=== PATIENT | male | born 1960 | race Caucasian/White ===

== ENCOUNTER 2018-02-21 12:11 | Day surgery (SDC) | payer BC ==
[~2018-02-21] VITALS: Ht 172.7 cm; Wt 150.9 kg
--- NOTE | ~2018-02-21 | OP ---
PATIENT NAME: CHRISTI MICHAEL MEDICAL RECORD: [id number] LOCATION:D[facility] ADMISSION DATE: SURGEON: NGUYEN LOO MD DATE OF OPERATION: 02/21/2018 PROCEDURE: Colonoscopy with polypectomy. REFERRING PHYSICIAN: Solitario Ray MD INDICATIONS: Mr. Michael is delightful 57-year-old gentleman with a history of colon polyps. His last colonoscopy was 01/19/2012 with findings showing 8 colorectal polyps (histopathology showed hyperplastic polyps). He presents for outpatient surveillance colonoscopy. PREMEDICATIONS: Total IV anesthesia (propofol 250 mg, BMI of 49). INSTRUMENT: Olympus video colonoscope pediatric. PROCEDURE AND FINDINGS: After receiving informed consent, Mr. Michael was placed in left lateral decubitus position and sedated as per anesthesia. After achieving an adequate level of sedation, digital rectal exam was performed that showed no external hemorrhoidal tags, fissures or fistulas, normal sphincter tone, no palpable rectal masses. The colonoscope was introduced per rectally and advanced to the cecum without difficulty. The cecum, IC valve, and appendiceal orifice were identified and appeared normal. As the colonoscope was withdrawn, careful inspection was made of the cano of the colon. Overall mucosa had normal vascular and fold pattern. A fair prep was present. Multiple lavages were made. In the distal sigmoid colon was a 0.3 cm sessile polyp removed with the biopsy forceps technique. Retroflexion in the rectum showed no internal hemorrhoids. Withdrawal time was 7 minutes. Mr. Michael tolerated the procedure well, no immediate complications. ASSESSMENT: 1. Small distal sigmoid polyp status post polypectomy. 2. Otherwise, normal colonoscopy. RECOMMENDATIONS: 1. Follow up histopathology. 2. Avoid aspirin, nonsteroidal anti-inflammatory drugs and LU-2 inhibitors for 14 days post polypectomy. 3. High fiber diet. 4. Surveillance colonoscopy in 5 years pending nature of polyp histopathology. TRANSINT:[id number] Voice Confirmation ID: [id number] DOCUMENT ID: [id number] NGUYEN LOO MD CC: SOLITARIO RAY MD [id number] DICTATION DATE: 02/21/18 1527 BILL SORTER: 02/21/18 1545 [facility] [address] [place] [address]
[2018-02-21 12:51] LABS: HEMATOCRIT 44.3 % (42.0-54.0); HEMOGLOBIN 15.3 g/dL (13.5-17.5); MCH 30.2 pg (26.0-34.0); MCHC 34.5 g/dL (31.0-37.0); MCV 87.5 fL (80.0-100.0); MEAN PLATELET VOLUME 9.6 fL (7.4-10.4); RBC 5.06 10x6/uL (4.20-6.10); WBC 6.4 10x3/uL (4.8-10.8)
[2018-02-21 12:55] LABS: CALC OSMOLALITY 278 mosm/kg (275-300); CALCIUM 8.7 mg/dL (8.5-10.1); CARBON DIOXIDE 29.4 mmol/L (21.0-32.0); CHLORIDE - SERUM 103 mmol/L (98-107); GLUCOSE 195 mg/dL (74-106); POTASSIUM - SERUM 4.5 mmol/L (3.5-5.1); SODIUM 137 mmol/L (136-145); UREA NITROGEN 13 mg/dL (7-18); eGFR NON AFRICAN AMERICAN 82 mL/min (90-120)
[2018-02-21 13:09] LABS: APTT 33.9 SECONDS (22.8-39.4); INR 1.04 (0.85-1.17); PROTIME 13.2 SECONDS (11.6-15.0)
[2018-02-21 14:48] VITALS: BP 147/82; Ht 172.7 cm; Wt 150.9 kg
[2018-02-21] MEDS ORDERED: LISINOPRIL10 MG PO (14:53)
[2018-02-21] MEDS ORDERED: FLOMAX0.4 MG PO (14:53)
[2018-02-21] MEDS ORDERED: BAYER CHEWABLE81 MG PO (14:54)
[2018-02-21] MEDS ORDERED: GLIPIZIDE10 MG PO (14:54)
== END 2018-02-21 16:30 | disposition home or self-care (01) ==
LOC: D.OPS 12:11
PROVIDERS: Anesthesiology
DX: K63.5 Polyp of colon (principal); Z86.010 Personal history of colon polyps